=== PATIENT | female | born 1970 | race Caucasian/White ===

== ENCOUNTER 2019-03-11 18:39 | Outpatient (AMB) | payer BC, SELFPAY ==
[2019-03-11 19:32] VITALS: BP 143/83; PULSE 114; RESP 18; TEMP 36.9; O2SAT 98; BMI 38.7
--- NOTE | 2019-03-11 19:32 | UCVISIT ---
Intake Ht./Wt. Decline/Exclusions Patient Declined Height and Weight this visit: No PT Meets exclusion criteria: No Vital Signs 03/11/19 19:32 Height Method Measured Weight Measurement Method Standing Scale BMI 38.7 Temp 98.4 F Temp Source Temporal Artery Scan Pulse 114 H Pulse Source Monitor Respiration 18 BP 143/83 H Blood Pressure Source Automatic Cuff Blood Pressure Location Right Upper Arm Position Sitting Pulse Oximetry (%) 98 Oxygen Delivery Method Room Air Intake Zika Travel: No Been in contact w/anyone who has been Dx w/Zika Virus: No Been in contact w/anyone sick during travel outside country: No Patient >or equal to 18 years BMI outside of range 18.5-24.9: Yes Visit Reasons: UC Rash Primary Care Provider: Gricel George Is patient in pain?: No Triage Triage Allergy / Med Rec Allergies latex Allergy (Intermediate, Verified 03/11/19 20:33) Rash amoxicillin Allergy (Mild, Verified 03/11/19 20:33) Rash bacitracin Allergy (Mild, Verified 03/11/19 20:33) Rash ciprofloxacin Allergy (Mild, Verified 03/11/19 20:33) Rash codeine Allergy (Mild, Verified 03/11/19 20:33) Rash erythromycin base Allergy (Mild, Verified 03/11/19 20:33) Rash hydrocortisone Allergy (Mild, Verified 03/11/19 20:33) Rash neomycin Allergy (Mild, Verified 03/11/19 20:33) Rash oxycodone Allergy (Mild, Verified 03/11/19 20:33) Rash Penicillins Allergy (Mild, Verified 03/11/19 20:33) Rash polymyxin B Allergy (Mild, Verified 03/11/19 20:33) Rash propoxyphene Allergy (Mild, Verified 03/11/19 20:33) Rash metoclopramide Allergy (Unknown, Verified 03/11/19 20:33) RASH naproxen Allergy (Unknown, Verified 03/11/19 20:33) RASH Band Placement: Patient Identification NNEKA: 3-Urgent Arrival Mode of Arrival: Private Vehicle Method of Arrival: Ambulatory Accompanied By: Self PCP or OBGYN visit in last 3 months: No Language Preferred Language: Serbian Supervisor [employer] Required: No Female History Now: No Last Menstrual Period: 03/02/19 : No Social History Alcohol / Drugs Hx Alcohol Use: No Hx Substance Use: No Safety Do You Feel Safe at Home: Yes Authorities Contacted: N/A Garrett Fall Scale Special Populations Patient Comatose, Paralyzed or Immobile: No Patient Under the Age of 44 Years Old: No Assessment History of falling; immediate or within 3 months: No Secondary diagnosis: Yes Ambulatory aid: None IV Infusion: No Gait/Transferring: Normal/bedrest/immobile Mental Status: Oriented to own ability Score Score: 15 Risk Level/Action Risk Level: Low Risk Action: Good Basic Nursing Care Fall Star Level 1 Fall Star Level 1: Yes Patient Education Topic Education Topics: Discharge Instructions and Plan of Care Teaching Recipient: Patient Readiness, Motivation to Learn: Active Methods: Verbal instruction and Hand Out Educ Materials Suggested by INFO Button/Rx Monograph Given: No Response: Verbalize Understanding Supervisor [employer] Required: No [facility] Hx Congestive Heart Failure: No Hx Diabetes Mellitus Type 1: No Hx Diabetes Mellitus Type 2: Yes Hx Renal Disease: No Hx Chronic Obstructive Pulmonary Disease (COPD): No Past Medical History Reviewed and agree with Nursing documentation.: Yes Past Medical History History Provided By: Patient Past Medical History: Yes Cardiac Medical History Hx Cardiac Disorders: Yes Hx Congestive Heart Failure: No Hx Hypertension: Yes Endocrine Medical History Hx Endocrine Disorders: Yes Hx Diabetes Mellitus Type 1: No Hx Diabetes Mellitus Type 2: Yes Genitourinary Medical History Hx Renal Disease: No Psycho/Social Medical History Hx Anxiety: Yes Hx Depression: Yes Respiratory Medical History Hx COPD: No ENT Surgical History Hx Eye Surgery: Yes GI Surgical History Hx Abdominal Surgery: Yes Hx Cholecystectomy: Yes Musculoskeletal Surgical History Hx Open Reduction Internal Fixation: Yes Female Reproductive Surgical History Hx Tubal Ligation: Yes HPI Rash History of Present Illness This is a 48-year-old female who presents the urgent care complaining of a painless purple rash to the lower extremities that is slowly working itself up to the torso over the last 2 days. No chest pain or shortness of breath. She denies any itching. She denies pain. She denies any fever chills nausea vomiting or diarrhea. She denies any allergen exposures. No one else at home has a rash. No other complaints at this time. Current symptoms: Reports purpuric; Denies pruritis or pain Associated symptoms: Denies abdominal pain, cough, fever(s), vomiting or nausea Previous testing: none Previous treatment: none Review of Systems (UC) Review of Systems All systems reviewed & no additional complaints except as documented Const Constitutional: Denies fever(s) Card Cardiovascular: Denies chest pain and Denies shortness of breath Resp Respiratory: Denies cough and Denies shortness of breath GI Gastrointestinal: Denies abdominal pain, Denies diarrhea, Denies nausea and Denies vomiting Skin/Breast Skin/Breast: Reports as per HPI, Denies itching and Reports rash Exam (UC) Limitations: no limitations General Appearance: alert, in no apparent distress, comfortable, cooperative, healthy appearing, well developed and well groomed Head exam: atraumatic, normocephalic and normal inspection Eye exam: Reports normal appearance and Reports EOMI ENT exam: Present normal exam Neck Exam: Present normal inspection Chest/Breast Exam: Present normal inspection SPO2%: 98% SPO2 type: Room Air SPO2% Normal/Abnormal: Normal Respiratory exam: Present normal lung sounds bilaterally, normal respiratory effort, able to speak in complete sentences and clear to ascultation bilaterally Cardiovascular exam: Present regular rhythm and tachycardia Extremities exam: normal inspection Back exam: Present normal inspection Neurological Exam: Present alert, awake and oriented X3 Skin exam: Present warm, dry, intact and rash (+ Purpuric rash noted to the lower extremities and mid torso region. No signs or symptoms of secondary infection. Nonblanching.) Office Procedures UC Level of Care Nursing/Assessment/Reassessment Patient Status: Established Patient Nursing Assessment/Reassessment: Triage Asessment, Initial Vital Signs and RN General Assessments Coordination of Care: DC Instructions Simple Established Patient Charge Established Patient Point Assignment: 40 Established Patient Point Assignment: EP Level 2 (40-75) Procedures: Pulse Ox reading: Yes UC Refer Patient to ED Yes Additional Comments:: PATIENT VERBALIZED UNDERSTANDING SHE IS TO GO DIRECTLY TO ER FOR FURTHER EVALUATION AND TREATMENT Supplemental Info MDM: The patient has what appears to be a vasculitis type rash on the lower torso and lower extremities. The patient will be referred to the emergency department for higher level care and further evaluations of her symptoms tonight. The patient is comfortable driving herself to the emergency department in her own vehicle. 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 Physician: Dex Peralta DC Evaluation Discharge Information Seen, Treated and Released by Provider: No Left Prior to Receiving Discharge Instructions: No Transfer to Outside Facility: No Vital Signs Vitals Signs N/A: Yes Pain Pain Medication / Other Intervention Provided: No Medication Medication Given this Visit: No Discharge Information Condition on Discharge: Stable Mode of Discharge: Ambulatory Discharge Transportation: Private Vehicle Instructions Supervisor [employer] Required: No Discharge Instructions Given To: Patient Was Follow up Care Ordered: Yes Verbalizes Understanding of Discharge Instructions: Yes Patient plan follow up w/PCP for [employer]: No
== END 2019-03-11 20:22 | disposition home or self-care (01) ==
PROVIDERS: PCP Family Medicine; Referring Provider Family Medicine; Visit Provider Physician Assistant
DX: I10 Essential (primary) hypertension (principal)

== ENCOUNTER → 2025-01-21 | Outpatient (CLI) | payer MEDICAID, SELFPAY ==
--- NOTE | 2025-01-21 14:45 | XR_ITS ---
Examination: Screening digital mammography, bilateral Computer aided detection 3-D breast Tomosynthesis, bilateral Date and time of exam: January 21, 2025 1438 hours Compared to mammograms dating to October 16, 2023 Indication: Screening Technique: Nonmagnified MLO, CC views of the breasts to been obtained, reconstructed from 3-D Tomosynthesis images. R2 computer aided detection program utilized for evaluation of suspicious masses and/or abnormal calcifications. 3-D Tomosynthesis images obtained. Findings: Scattered areas of fibroglandular density. Benign calcifications. No interval suspicious masses Impression: BI-RADS category II: Benign Findings. Recommend 1 year follow-up mammogram.
== END | disposition home or self-care (01) ==
PROVIDERS: PCP Physician Assistant; Referring Provider Physician Assistant; Visit Provider Physician Assistant
DX: Z12.31 Encounter for screening mammogram for malignant neoplasm of breast (principal); R92.323 Mammographic fibroglandular density, bilateral breasts; R92.1 Mammographic calcification found on diagnostic imaging of breast
CPT/HCPCS: 77063; 77067

== ENCOUNTER → 2025-02-20 | Outpatient (CLI) | payer MEDICAID, SELFPAY ==
--- NOTE | 2025-02-20 08:38 | XR_ITS ---
Examination: Bilateral hips, AP pelvis, 5 views Technique: AP, lateral views both hips, AP pelvis, 5 views Exam date and time: February 20, 2025 0859 hours INDICATIONS: Bilateral hip pain beginning one month ago. FINDINGS: Mild to moderate bilateral hip osteoarthritis. No hip or pelvic fracture IMPRESSION: Mild to moderate bilateral hip osteoarthritis
--- NOTE | 2025-02-20 08:38 | XR_ITS ---
Examination: Lumbar spine, 5 views Technique: Lumbar spine AP, lateral, coned lateral lower lumbar spine, bilateral obliques 5 views Exam date and time: February 20, 2025 0859 hours Comparison May 14, 2024 INDICATIONS: Low back pain radiating to both hips beginning one month ago getting worse. FINDINGS: Moderate osteopenia Diffuse facet arthropathy No lumbar fracture Moderate lumbar spondylosis Mild to moderate diffuse lumbar degenerative disc disease most prominent L4-L5, L5-S1 IMPRESSION: Mild to moderate diffuse lumbar degenerative disc disease most prominent L4-L5, L5-S1
== END | disposition home or self-care (01) ==
LOC: CDIM 08:30
PROVIDERS: PCP Physician Assistant; Referring Provider Physician Assistant; Visit Provider Physician Assistant
DX: M51.360 Other intervertebral disc degeneration, lumbar region with discogenic back pain only (principal); M51.370 Other intervertebral disc degeneration, lumbosacral region with discogenic back pain only; M16.0 Bilateral primary osteoarthritis of hip
CPT/HCPCS: 72110; 73523

== ENCOUNTER → 2025-07-13 | Outpatient (CLI) | payer MEDICAID, SELFPAY ==
--- NOTE | 2025-07-13 13:33 | XR_ITS ---
Examination: Bilateral hips, AP pelvis, 5 views Technique: AP, lateral views both hips, AP pelvis, 5 views Exam date and time: July 13, 2025, 1341 hours, comparison February 20, 2025 INDICATIONS: Bilateral hip pain 2 months. FINDINGS: Mild to moderate bilateral hip osteoarthritis No hip or pelvic fracture No avascular necrosis IMPRESSION: Mild to moderate bilateral hip osteoarthritis
== END | disposition home or self-care (01) ==
LOC: CDIM 13:21
PROVIDERS: PCP Physician Assistant; Referring Provider Physician Assistant; Visit Provider Physician Assistant
DX: M16.0 Bilateral primary osteoarthritis of hip (principal)
CPT/HCPCS: 73523